=== PATIENT | female | born 1965 | race Caucasian/White ===

== ENCOUNTER 2016-08-22 10:42 | Emergency (ER) | payer OTHER, MEDICAID ==
--- NOTE | 2016-08-22 11:31 | EDM.PDOC ---
[id number] PAIN IN CHEST AREA Time Seen by Provider: 08/22/16 11:10 Source of Information: Reports: Patient, Family History Limitations: Reports: No limitations - History of Present Illness INITIAL COMMENTS - FREE TEXT/NARRATIVE: 51-year-old female who is had intermittent left-sided chest discomfort laterally over the past 2-3 weeks. It causes her some brief anxiety and shortness of breath, the pain usually lasts just a minute or 2 sometimes slightly longer. No cough, shortness of breath, nausea or vomiting but she gets anxious. She used to take some chronic anxiety medications but a doctor change occurred and she no longer takes the medicine. No coronary artery disease history, a stress test 5 years ago was normal. Onset: unknown/unsure Location: Reports: chest (Localized to the left lateral chest) Severity: mild Associated Symptoms: Reports: denies other symptoms, other (Except anxiety) Chest Pain Score (Numeric/FACES): 3 - Related Data Allergies Allergy/AdvReac Type Severity Reaction Status Date / Time doxycycline AdvReac Nausea and Verified 08/22/16 11:03 Vomiting Home Meds: Home Meds Acetaminophen [Tylenol Extra Strength] 500 mg PO ASDIRECTED 02/19/15 [History] Aspirin 325 mg PO Q4H PRN 02/19/15 [History] Latanoprost [Xalatan 0.005% Oph Soln] 1 drop EYEBOTH BEDTIME 02/19/15 [History ] Vitamin E 400 unit PO DAILY 02/19/15 [History] Past Medical History - Past Health History Medical/Surgical History: Denies Medical/Surgical History HEENT History: Reports: Impaired vision Cardiovascular History: Reports: High cholesterol Respiratory History: Reports: Sleep apnea Gastrointestinal History: Reports: Colon polyp Other Musculoskeletal History: comp. fx spine from [facility] Psychiatric History: Reports: Anxiety, Depression Other Psychiatric History: MR - Infectious Disease History Infectious Disease History: Reports: Chicken pox, Measles - Past Surgical History GI Surgical History: Reports: Colonoscopy, Polypectomy Social & Family History - Tobacco Use Smoking Status *Q: Never Smoker Second Hand Smoke Exposure: No - Caffeine Use Caffeine Use: Reports: Tea - Alcohol Use Days Per Week of Alcohol Use: 0 - Recreational Drug Use Recreational Drug Use: No ED ROS GENERAL - Review of Systems Review Of Systems: See Below Constitutional: Denies: fever, chills, malaise, weakness HEENT: Reports: No symptoms Respiratory: Reports: Pleuritic Chest Pain. Denies: Shortness of Breath Cardiovascular: Reports: Chest pain, Lightheadedness. Denies: Palpitations GI/Abdominal: Reports: No symptoms : Reports: no symptoms Musculoskeletal: Reports: no symptoms Skin: Reports: no symptoms Neurological: Reports: Dizziness Psychiatric: Reports: Anxiety ED EXAM, GENERAL - Physical Exam Exam: See Below Exam Limited By: No limitations General Appearance: alert, no apparent distress Eye Exam: bilateral eye: normal inspection Respiratory/Chest: no respiratory distress, lungs clear, chest non-tender Cardiovascular: regular rate, rhythm Extremities: normal inspection Neurological: alert, oriented Psychiatric: anxious Skin Exam: Warm, Dry Course - Vital Signs Last Recorded V/S: Last Vital Signs Temp 97.3 F 08/22/16 11:10 Pulse 100 08/22/16 12:37 Resp 18 08/22/16 12:37 BP 118/70 08/22/16 12:37 Pulse Ox 100 08/22/16 12:37 - Orders/Labs/Meds Labs: Laboratory Tests 08/22/16 08/22/16 Range/Units 11:36 11:36 WBC 5.3 (4.5-11.0) K/uL RBC 5.01 (3.30-5.50) M/uL Hgb 14.1 (12.0-15.0) g/dL Hct 41.8 (36.0-48.0) % MCV 83 (80-98) fL MCH 28 (27-31) pg MCHC 34 (32-36) % Plt Count 247 (150-400) K/uL Neut % (Auto) 47 (36-66) % Lymph % (Auto) 41 (24-44) % [place] % (Auto) 8 H (2-6) % Eos % (Auto) 3 (2-4) % Baso % (Auto) 1 (0-1) % Sodium 143 (140-148) mmol/L Potassium 4.0 (3.6-5.2) mmol/L Chloride 107 (100-108) mmol/L Carbon Dioxide 24 (21-32) mmol/L Anion Gap 11.8 (5.0-14.0) mmol/L BUN 21 H (7-18) mg/dL Creatinine 1.1 H (0.6-1.0) mg/dL Est Cr Clr Drug Dosing 52.04 mL/min Estimated GFR (MDRD) 52 L (>60) Glucose 91 (74-106) mg/dL Calcium 8.6 (8.5-10.1) mg/dL Troponin I < 0.017 (0.000-0.056) ng/mL - Re-Assessments/Exams Free Text/Narrative Re-Assessment/Exam: 08/22/16 11:30 Patient is very anxious and mildly hyperventilating, O2 saturations are 100%. The symptoms are very likely non-cardiac but a troponin, CBC and BMP were drawn for reassurance. 08/22/16 12:07 Labs are normal, troponin was 0. Patient was reassured. She can discuss a stress test again with her primary care physician next week if symptoms continue but I don't think her risk is high enough to have to set that up from the emergency room. Departure - Departure Time of Disposition: 12:38 Disposition: Home, Self-Care 01 Condition: good Clinical Impression: Chest pain, non-cardiac Instructions: Nonspecific Chest Pain, [id number] Referrals: Deidra Allison NP [Primary Care Provider] - Forms: ED Department Discharge Care Plan Goals: Try naproxen or ibuprofen a few times a day and activity as tolerated. Consider discussing with your regular doctor in the next 1 to 2 weeks to see if another stress test would be appropriate. You can return anytime if worsening or concerns. Use lorazepam one half to one tablet 1-2 times daily if needed.
[2016-08-22 12:38] VITALS: BP 118/70
== END 2016-08-22 12:39 | disposition home or self-care (01) ==
LOC: JP.ED 10:42
DX: R07.89 Other chest pain (principal); E78.00 Pure hypercholesterolemia, unspecified; F41.9 Anxiety disorder, unspecified; F32.9 Major depressive disorder, single episode, unspecified; Z79.82 Long term (current) use of aspirin; Z79.899 Other long term (current) drug therapy; Z88.8 Allergy status to other drugs, medicaments and biological substances
CPT/HCPCS: 36415; 80048; 84484; 85025; 99283; 99285

== ENCOUNTER 2020-02-01 20:14 | Emergency (ER) | payer OTHER ==
[2020-02-01 20:33] VITALS: BP 131/92; PULSE 74
[2020-02-01] MEDS ORDERED: Bacitracin Oint 1 GM U/D Packet TOP ONE (20:51)
--- NOTE | 2020-02-01 20:55 | EDM.PDOC ---
ED HPI GENERAL MEDICAL PROBLEM - General Chief Complaint: Skin Complaint Stated Complaint: CUTS ON FINGERS RIGHT HAND Time Seen by Provider: 02/01/20 20:45 Source of Information: Reports: Patient, Old Records History Limitations: Reports: No Limitations - History of Present Illness INITIAL COMMENTS - FREE TEXT/NARRATIVE: 54 yo female was working at [employer] and about 6 pm tonight incurred some very superficial lacerations to the dorsum of her R 3rd and 4th fingers. Tetanus is UTD. Needs paperwork filled out for [employer]. Onset: Today, Sudden Onset Date: 02/01/20 Onset Time: 18:00 Duration: Hour(s): Location: Reports: Upper Extremity, Right Quality: Reports: Dull Severity: Mild Improves with: Reports: None Worsens with: Reports: None Context: Reports: Trauma Associated Symptoms: Reports: No Other Symptoms Treatments EMBROIDERY WORKER: Reports: Other (see below) (none) Right Hand Pain Score (Numeric/FACES): 3 - Related Data Allergies Allergy/AdvReac Type Severity Reaction Status Date / Time doxycycline AdvReac Nausea and Verified 02/01/20 20:56 Vomiting Home Meds: Home Meds Acetaminophen [Tylenol Extra Strength] 500 mg PO ASDIRECTED 02/19/15 [History] Aspirin 325 mg PO Q4H PRN 02/19/15 [History] Latanoprost [Xalatan 0.005% Ophth Soln] 1 drop EYEBOTH BEDTIME 02/19/15 [History] Vitamin E 400 unit PO DAILY 02/19/15 [History] Past Medical History - Past Health History Medical/Surgical History: Denies Medical/Surgical History HEENT History: Reports: Impaired Vision Cardiovascular History: Reports: High Cholesterol Respiratory History: Reports: Sleep Apnea Gastrointestinal History: Reports: Colon Polyp Other Musculoskeletal History: comp. fx spine from [facility] Psychiatric History: Reports: Anxiety, Depression Other Psychiatric History: MR - Infectious Disease History Infectious Disease History: Reports: Chicken Pox, Measles - Past Surgical History GI Surgical History: Reports: Colonoscopy, Polypectomy Social & Family History - Caffeine Use Caffeine Use: Reports: Tea Review of Systems - Review of Systems Review Of Systems: See Below Constitutional: Reports: No Symptoms Musculoskeletal: Reports: No Symptoms Skin: Reports: Wound (R hand) Neurological: Reports: No Symptoms ED EXAM, GENERAL - Physical Exam Exam: See Below Exam Limited By: No Limitations General Appearance: Alert, WD/WN, No Apparent Distress Extremities: Normal Inspection Neurological: Alert, Oriented, CN II-XII Intact, Normal Cognition, No Motor/Sensory Deficits Psychiatric: Normal Affect, Normal Mood Skin Exam: Warm, Dry, Normal Color, No Rash, Wound/Incision (Very superficial lacerations of the distal aspect of the R 3rd and 4th fingers. No bleeding. ) Course - Vital Signs Text/Narrative:: Wounds cleaned and dressed per RN. Last Recorded V/S: Last Vital Signs Temp 36.1 C 02/01/20 20:59 Pulse 74 02/01/20 20:59 Resp 16 02/01/20 20:59 BP 131/92 H 02/01/20 20:59 Pulse Ox 100 02/01/20 20:59 - Orders/Labs/Meds Meds: Medications Discontinued Medications Generic Name Dose Route Start Last Admin Trade Name Sue PRN Reason Stop Dose Admin Bacitracin 1 dose 02/01/20 20:51 Bacitracin Oint 1 Gm TOP 02/01/20 20:52 ONETIME ONE Departure - Departure Time of Disposition: 21:06 Disposition: Home, Self-Care 01 Condition: Good Clinical Impression: Finger laceration Qualifiers: Encounter type: initial encounter Finger: ring finger Damage to nail status: without damage Foreign body presence: without foreign body Laterality: right Qualified Code(s): S61.214A - Laceration without foreign body of right ring finger without damage to nail, initial encounter - Discharge Information *PRESCRIPTION DRUG MONITORING PROGRAM REVIEWED*: No *COPY OF PRESCRIPTION DRUG MONITORING REPORT IN PATIENT CAROLINE: No Instructions: Nonsutured Laceration Care Referrals: PCP,None [Primary Care Provider] - Forms: ED Department Discharge Additional Instructions: Clean wound twice daily with soap and water. Dry. Apply Bacitracin ointment and a new dressing. Recheck for signs of infection. Acetaminophen as needed for pain relief. Sepsis Event Note (ED) - Focused Exam Vital Signs: Vital Signs Temp Pulse Resp BP Pulse Ox 02/01/20 20:59 36.1 C 74 16 131/92 H 100 02/01/20 20:32 36.1 C 74 16 131/92 H 100
== END 2020-02-01 21:20 | disposition home or self-care (01) ==
LOC: JP.ED 20:14
DX: S61.212A Laceration without foreign body of right middle finger without damage to nail, initial encounter (principal); S61.214A Laceration without foreign body of right ring finger without damage to nail, initial encounter; Z88.1 Allergy status to other antibiotic agents; W45.8XXA Other foreign body or object entering through skin, initial encounter; Y92.512 Supermarket, store or market as the place of occurrence of the external cause; Y99.0 Civilian activity done for income or pay
CPT/HCPCS: 99282

== ENCOUNTER 2020-07-15 10:19 | Day surgery (SDC) | payer OTHER ==
[~2020-07-15 10:19] MED LIST: Midazolam 1 MG/ML 2 ML SDV ONE; Propofol 200 MG/20 ML SDV ONE; fentaNYL 100 MCG/2 ML SDV ONE
[2020-07-15] MEDS ORDERED: Bupivacaine 0.5% 50 ML MDV ONE (10:30)
[2020-07-15] MEDS ORDERED: Lactated Ringers 1,000 ML IV SCH (11:00)
[2020-07-15] MEDS ORDERED: ceFAZolin 2 GM in Premix Bag 1 BAG IV ONE (12:00)
[2020-07-15] MEDS ORDERED: Propofol 200 MG/20 ML SDV ONE ×2 (12:06→12:20)
[2020-07-15 13:51] VITALS: BP 123/82; PULSE 55
[2020-07-15] MEDS ORDERED: Acetaminophen/HYDROcodone 325-5 MG Tab PO ONE (14:00)
--- NOTE | 2020-07-16 07:05 | OR ---
DATE OF PROCEDURE: 07/15/2020 SURGEON: Cy Lewis DPM REMELT WORKER: None. PREOPERATIVE DIAGNOSES: 1. Painful hardware, right foot. 2. Painful bone spur, right foot. POSTOPERATIVE DIAGNOSES: 1. Painful hardware, right foot. 2. Painful bone spur, right foot. PROCEDURES: 1. Hardware removal, right foot. 2. Bone spur removal, dorsum of the right foot. ANESTHESIA: Local with IV sedation. HEMOSTASIS: Obtained with a calf tourniquet on the right calf at 250 mmHg. ESTIMATED BLOOD LOSS: 5 mL. MATERIALS: Bone wax was used. INJECTABLES: A total of 30 mL of Marcaine 0.5% plain was injected. PATHOLOGY: None. CONDITION: Stable. INDICATIONS FOR SURGERY: Painful loose screw at dorsum of right foot that was prominent and also painful bone spur at dorsal aspect of right foot that was tender to palpation, tender in shoes, and unresponsive to conservative measures. PROCEDURE IN DETAIL: The patient was brought to the operating room, placed on the operating table in supine position. Following IV sedation, anesthesia was obtained with a total of 20 mL of Marcaine 0.5% plain. The right foot was then scrubbed, prepped, and draped in usual aseptic manner and raised to 60 degrees for hemostasis. Tourniquet was inflated, and foot was lowered to the table. Esmarch was not used. Incision was made over the dorsal aspect of the right foot primarily on the old incision. We did deviate slightly laterally to where we could see the head of the screw poking through and palpate the head of the screw. Incisions were deepened through subcutaneous tissues with care taken to identify and retract all vital neurovascular structures. The screw was identified and removed. We then continued dissecting down to the level of the bone spur. The bone spur was identified through palpation, through visualization, and also fluoroscopically and then was removed using an osteotome and mallet and reciprocating rasp. We then rechecked to make sure that the bone spur had been adequately removed. Having been satisfied with bone spur removal, we then placed bone wax where the bone spur had been removed and then flushed out the incision with copious amounts of sterile saline. Subcutaneous closure was done with 3-0 Vicryl, skin closure with 3-0 Prolene in a horizontal mattress configuration and dressed with Xeroform, 4x4s, Kerlix, and Coban. A total of 10 mL more of Marcaine 0.5% plain had been injected intraoperatively. The right foot was then dressed with Xeroform, 4x4s, ABD pad, Kerlix, and Coban and then the patient was returned to recovery room with vital signs stable and vascular status intact to both feet. The patient was given instructions to rest ice and elevate the right foot. The patient was told that she needs to maintain and keep dressings clean, dry, and intact; ambulate with knee scooter; and to wear her Cam boot for protection. The patient to return to clinic in 1 week at which time, she will be re-evaluated. The patient was told to go the emergency room immediately if she has any nausea, vomiting, fever, chills, chest pain, calf pain, or difficulty breathing. Cy Lewis DPM /[id number]
== END 2020-07-15 14:00 | disposition home or self-care (01) ==
LOC: JP.SDS 10:19
PROVIDERS: ATTEND Podiatrist Foot & Ankle Surgery
DX: T84.84XA Pain due to internal orthopedic prosthetic devices, implants and grafts, initial encounter (principal); M77.52 Other enthesopathy of left foot and ankle; E78.00 Pure hypercholesterolemia, unspecified; E66.01 Morbid (severe) obesity due to excess calories; Z68.41 Body mass index [BMI] 40.0-44.9, adult; Z88.1 Allergy status to other antibiotic agents; Z79.899 Other long term (current) drug therapy; Z98.890 Other specified postprocedural states
CPT/HCPCS: 76000; A9270-GY; J0690; J2250; J2704; J3010; J3490; J7120